=== PATIENT | male | born 2000 | race Caucasian/White ===

== ENCOUNTER 2020-08-18 07:19 | Emergency (ER) | payer OTHER ==
[~2020-08-18] VITALS: Ht 175.3 cm; Wt 124.7 kg
[~2020-08-18 07:19] MED LIST: IBUP200; PRED10 PO
== END 2020-08-18 08:43 | disposition home or self-care (01) ==
LOC: ER 07:19
DX: M54.6 Pain in thoracic spine (principal); M25.511 Pain in right shoulder
CPT/HCPCS: 71046; 99283-25

== ENCOUNTER 2022-03-11 10:49 | Emergency (ER) | payer OTHER ==
[~2022-03-11] VITALS: Ht 180.3 cm; Wt 129.3 kg
[2022-03-11] MEDS ORDERED: IBUP800 PO (11:07)
[2022-03-11] MEDS ORDERED: Amoxicillin500 MG PO (11:07)
[2022-03-11] MEDS ORDERED: PHENERGAN25 MG PR (22:52)
== END 2022-03-11 11:29 | disposition home or self-care (01) ==
LOC: ER 10:49
DX: K04.7 Periapical abscess without sinus (principal)
CPT/HCPCS: 99283

== ENCOUNTER → 2024-05-22 | Outpatient (CLI) | payer OTHER ==
[~2024-05-22] MED LIST changes: +Amoxicillin500 MG PO; +IBUP800 PO; +PHENERGAN25 MG PR
== END | disposition home or self-care (01) ==
LOC: LAB SHORT 17:32
DX: B35.3 Tinea pedis (principal)
CPT/HCPCS: 87220

== ENCOUNTER → 2024-05-22 | Outpatient (CLI) | payer OTHER | LOC: PLD 07:30 → LAB 07:30 | DX: B35.1 Tinea unguium (principal); L60.2 Onychogryphosis | CPT/HCPCS: 88305; 88312 ==